=== PATIENT | female | born 1995 | race Caucasian/White ===

== ENCOUNTER 2017-04-27 20:56 | Emergency (ER) | payer OTHER ==
[~2017-04-27] VITALS: Ht 165.1 cm; Wt 78.1 kg
[~2017-04-27 20:56] MED LIST: ADDERALL10 M1 PO; ANAPROX DS550 M1 PO; ANTI-ITCH28.4 GM TP; ATIVAN0.5 MG PO; BENTYL20 MG PO; CEFDINIR300 MG PO; CHILDREN'S MOT120 M2 PO; CHILDREN'S160 MG/18 PO; FAMOTIDINE20 MG PO; LIALDA1.2 GM PO; LICE TREATMENT118 ML TP; MOTRIN IB200 MG PO; MOTRIN PO; NAPROSYN500 MG PO; PROAIR HFA8.5 GM IH; VYVANSE PO; VYVANSE20 MG PO; VYVANSE50 MG PO
[2017-04-27 22:12] LABS: HEMATOCRIT 40.5 % (36.0-46.0); MCH 27.9 PG (29.0-34.0); MCHC 31.9 G/DL (30.0-36.0); MCV 87.7 FL (83-99); MEAN PLAT.VOLUME 10.1 uM^3 (9.5-12.4); PLATELET COUNT 305 K/uL (156-360); RBC DIS.WIDTH-CV 13.2 % (11.8-14.6); RBC DIS.WIDTH-SD 42.5 % (39-53); RED BLOOD COUNT 4.62 M/uL (3.80-5.20); WHITE BLOOD COUNT 8.2 K/uL (4.1-10.2)
[2017-04-27 22:19] LABS: CHLORIDE 109 mEq/L (99-109); SODIUM 141 mEq/L (136-147)
[2017-04-27 22:22] LABS: GLUCOSE 116 mg/dL (70-99)
[2017-04-27 22:23] LABS: ANION GAP 12 MEQ/L (2-14)
[2017-04-27 22:24] LABS: TOTAL BILIRUBIN 0.3 mg/dL (0.0-1.0)
[2017-04-27 22:25] LABS: ALKALINE PHOSPHATASE 58 IU/L (3-129); GFR ESTIMATE (CALCULATED) > 59 mL/min/
[2017-04-27 22:26] LABS: UREA NITROGEN (BUN) 12 mg/dL (9-23)
[2017-04-27 22:40] LABS: QUANTITATIVE HCG < 4.0 MIU/ML
[2017-04-28 01:19] LABS: ADD MIUA? NO; BILIRUBIN NEGATIVE; BLOOD NEGATIVE; COLOR STRAW ((YELLOW)); GLUCOSE (STRIP) NEGATIVE; KETONES NEGATIVE; LEUKOCYTES NEGATIVE; NITRITE NEGATIVE; PROTEIN (STRIP) NEGATIVE; SPECIFIC GRAVITY 1.012 (1.000-1.030); UCUL ADDED? NO; UROBILINOGEN 0.2 MG/DL (0.2-1.0)
[2017-04-28 04:06] LABS: C DIFF TOXIN NEGATIVE (NEGATIVE)
[2017-04-28] MEDS ORDERED: ZOFRAN ODT4 MG PO (04:09)
[2017-04-28 04:10] LABS: PROBE CHECK PASS; SPECIMEN PROCESSING CONTROL PASS
[2017-04-28 04:43] VITALS: BP 114/83
== END 2017-04-28 04:44 | disposition home or self-care (01) ==
LOC: EME 20:56
PROVIDERS: Emergency Medicine
DX: K51.911 Ulcerative colitis, unspecified with rectal bleeding (principal); K21.9 Gastro-esophageal reflux disease without esophagitis; J45.909 Unspecified asthma, uncomplicated; F90.9 Attention-deficit hyperactivity disorder, unspecified type; I49.8 Other specified cardiac arrhythmias; N83.201 Unspecified ovarian cyst, right side; Z88.0 Allergy status to penicillin
CPT/HCPCS: 74177; 80053; 81003; 84702; 85027; 85651; 86140; 87493; 87506; 99281; 99285; J2405; J3010; J7030

== ENCOUNTER 2017-09-29 20:26 | Emergency (ER) | payer OTHER ==
[~2017-09-29] VITALS: Ht 165.1 cm; Wt 80.6 kg
[~2017-09-29 20:26] MED LIST changes: +ZOFRAN ODT4 MG PO
[2017-09-29 20:51] LABS: APPEARANCE CLEAR ((CLEAR)); BILIRUBIN NEGATIVE; BLOOD NEGATIVE; COLOR YELLOW ((YELLOW)); GLUCOSE (STRIP) NEGATIVE; KETONES NEGATIVE; LEUKOCYTES NEGATIVE; NITRITE NEGATIVE; PROTEIN (STRIP) NEGATIVE; SPECIFIC GRAVITY 1.028 (1.000-1.030); UCUL ADDED? NO; UROBILINOGEN 0.2 MG/DL (0.2-1.0)
[2017-09-29 21:24] LABS: HEMATOCRIT 38.2 % (36.0-46.0); HEMOGLOBIN 12.7 G/DL (11.9-15.5); MCH 29.1 PG (29.0-34.0); MCHC 33.2 G/DL (30.0-36.0); MCV 87.6 FL (83-99); PLATELET COUNT 287 K/uL (156-360); RBC DIS.WIDTH-CV 12.9 % (11.8-14.6); RBC DIS.WIDTH-SD 41.5 % (39-53); RED BLOOD COUNT 4.36 M/uL (3.80-5.20); WHITE BLOOD COUNT 6.6 K/uL (4.1-10.2)
[2017-09-29 21:45] LABS: ALBUMIN 4.2 g/dL (3.2-4.8); CHLORIDE 109 mEq/L (99-109); SODIUM 140 mEq/L (136-147)
[2017-09-29 21:48] LABS: GLUCOSE 78 mg/dL (70-99); TOTAL PROTEIN 6.7 g/dL (6.4-8.3)
[2017-09-29 21:51] LABS: ALKALINE PHOSPHATASE 46 IU/L (3-129); GFR ESTIMATE (CALCULATED) > 59 mL/min/; TOTAL BILIRUBIN 0.4 mg/dL (0.0-1.0)
[2017-09-29 21:52] LABS: UREA NITROGEN (BUN) 16 mg/dL (9-23)
[2017-09-29 21:53] LABS: AST (GOT) 17 IU/L (2-34)
[2017-09-29 21:54] LABS: ALT (GPT) 11 IU/L (3-49)
[2017-09-29 21:55] LABS: LIPASE 68 U/L (1.0-51.0)
[2017-09-29 22:01] LABS: QUANTITATIVE HCG < 4.0 MIU/ML
[2017-09-29 22:08] LABS: ERTH.SED.RATE 3 MM/HR (0-20)
[2017-09-29 22:33] LABS: C-REACTIVE PROTEIN < 1.0 MG/L (0-10)
[2017-09-30 01:11] VITALS: BP 113/75
== END 2017-09-30 01:41 | disposition home or self-care (01) ==
LOC: EME 20:26
DX: R51 Headache (principal); R10.9 Unspecified abdominal pain; K50.911 Crohn's disease, unspecified, with rectal bleeding; J45.909 Unspecified asthma, uncomplicated; K21.9 Gastro-esophageal reflux disease without esophagitis; F90.9 Attention-deficit hyperactivity disorder, unspecified type; Z88.0 Allergy status to penicillin
CPT/HCPCS: 70450; 80053; 81003; 83690; 84702; 85027; 85652; 86140; 99281; 99285; J1200; J2765; J7030

== ENCOUNTER 2018-03-12 20:08 | Emergency (ER) | payer OTHER ==
[~2018-03-12] VITALS: Ht 165.1 cm; Wt 81.1 kg
[2018-03-12 20:51] LABS: HEMATOCRIT 39.4 % (36.0-46.0); HEMOGLOBIN 13.4 G/DL (11.9-15.5); MCH 29.3 PG (29.0-34.0); PLATELET COUNT 326 K/uL (156-360); RBC DIS.WIDTH-CV 12.8 % (11.8-14.6); RBC DIS.WIDTH-SD 40.1 % (39-53); RED BLOOD COUNT 4.58 M/uL (3.80-5.20); WHITE BLOOD COUNT 8.4 K/uL (4.1-10.2)
[2018-03-12 20:57] LABS: APPEARANCE CLEAR ((CLEAR)); BILIRUBIN NEGATIVE; BLOOD NEGATIVE; COLOR YELLOW ((YELLOW)); GLUCOSE (STRIP) NEGATIVE; KETONES NEGATIVE; LEUKOCYTES NEGATIVE; NITRITE NEGATIVE; PROTEIN (STRIP) NEGATIVE; SPECIFIC GRAVITY 1.018 (1.000-1.030); UROBILINOGEN 0.2 MG/DL (0.2-1.0)
[2018-03-12 21:05] LABS: CHLORIDE 103 MEQ/L (99-109); SODIUM 136 MEQ/L (136-147)
[2018-03-12 21:06] LABS: COCAINE NEGATIVE (150 ng/mL); PHENCYCLIDINE NEGATIVE (25 ng/mL); THC CANNABINOIDS NEGATIVE (50 ng/mL)
[2018-03-12 21:07] LABS: AMPHETAMINE PRESUMPTIVE POSITIVE (500 ng/mL); BARBITURATES NEGATIVE (200 ng/mL); BENZODIAZEPINES NEGATIVE (150 ng/mL); BUPRENORPHINE NEGATIVE (10 ng/mL); METHADONE NEGATIVE (200 ng/mL); METHAMPHETAMINE NEGATIVE (500 ng/mL); OPIATES (MORPHINE) NEGATIVE (100 ng/mL); OXYCODONE NEGATIVE (100 ng/mL); PROPOXYPHENE NEGATIVE (300 ng/mL); TRICYCLIC ANTIDEPRESSANTS NEGATIVE (300 ng/mL)
[2018-03-12 21:10] LABS: CREATININE 0.9 MG/DL (0.6-1.3); GFR ESTIMATE (CALCULATED) > 59 mL/min/; GLUCOSE 93 mg/dL (70-99); UREA NITROGEN (BUN) 13 mg/dL (9-23)
[2018-03-12 21:50] LABS: ALBUMIN 4.2 G/DL (3.2-4.8); DIRECT BILIRUBIN 0.1 mg/dL (0.0-0.3); TOTAL BILIRUBIN 0.3 MG/DL (0.0-1.0)
[2018-03-12 21:55] LABS: ALKALINE PHOSPHATASE 46 IU/L (3-129); ALT (GPT) 13 IU/L (3-49); AST (GOT) 18 IU/L (2-34)
[2018-03-12 21:58] LABS: QUANTITATIVE HCG < 4.0 MIU/ML
[2018-03-12 22:08] LABS: THYROTROPIN (TSH) 3.2 MIU/L (0.4-5.5)
[2018-03-12 22:36] VITALS: BP 116/77
[2018-03-13 09:12] LABS: LYME DISEASE SEROLOGY SCREEN NEGATIVE (NEGATIVE)
== END 2018-03-12 22:36 | disposition home or self-care (01) ==
LOC: EME 20:08
PROVIDERS: Physician Assistant
DX: R53.83 Other fatigue (principal); R51 Headache; J45.909 Unspecified asthma, uncomplicated; Z88.0 Allergy status to penicillin
CPT/HCPCS: 80048; 80076; 81003; 84443; 84702; 84999; 85027; 86618; 86664; 86665; 99281; 99285